=== PATIENT | female | born 1995 | race American Indian/Alaskan Native ===

== ENCOUNTER 2017-03-08 07:26 | Observation (INO) | payer MEDICAID, OTHER ==
[2013-11-27 01:38] VITALS: BMI 20.5
[2017-03-08] MEDS ORDERED: Sodium Chloride 0.9% 1,000 ML IV STA (08:49)
--- NOTE | 2017-03-08 09:17 | ED PDOC ---
Arrival/HPI - General Time Seen by Provider: 03/08/17 08:49 Historian: Patient - History of Present Illness Narrative History of Present Illness (Text): 03/08/17 09:14 Elvira Medrano is a 21 year old female, whose past medical history includes renal stones, presents to the Emergency department complaing of right side back pain since one day ago. Patient states it feels like the last time she got renal stones. Patient denies problems with urination, fever, chest pain, shortness of breath, headache, chills, cough, nausea, vomiting, diarrhea, changes in bowel habits, dysuria, or other complaints. PMD: None Time/Duration: 24 hours Symptom Onset: Sudden Symptom Course: Unchanged Modifying Factors (Text): None Context: Home Associated Symptoms (Text): None Past Medical History - Provider Review Nursing Documentation Reviewed: Yes - Infectious Disease Hx of Infectious Diseases: None - Tetanus Immunization Tetanus Immunization: Up to Date - Past Medical History Past Medical History: No Previous - Psychiatric Hx Depression: No Hx Emotional Abuse: No Hx Physical Abuse: No Hx Substance Use: No - Past Surgical History Past Surgical History: No Previous - Suicidal Assessment Feels Threatened In Home Enviroment: No Family/Social History - Physician Review Nursing Documentation Reviewed: Yes Family/Social History: Unknown Family HX Hx Alcohol Use: No Hx Substance Use: No Hx Substance Use Treatment: No Allergies/Home Meds Allergies/Adverse Reactions: Allergies No Known Allergies Allergy (Verified 03/08/17 09:55) Review of Systems - Physician Review All systems were reviewed & negative as marked: Yes - Review of Systems Constitutional: absent: Fevers Gastrointestinal: absent: Diarrhea, Vomiting Musculoskeletal: Back Pain (right side) Neurological: absent: Headache Physical Exam Vital Signs Reviewed: Yes Vital Signs Temp Pulse Resp BP Pulse Ox 03/08/17 12:00 98.1 F 88 18 120/67 100 03/08/17 09:50 97.5 F L 82 18 132/74 100 03/08/17 09:16 97.5 F L 82 18 132/74 100 Temperature: Afebrile Blood Pressure: Normal Pulse: Regular Respiratory Rate: Normal Appearance: Positive for: Well-Appearing, Non-Toxic, Comfortable Pain Distress: None Mental Status: Positive for: Alert and Oriented X 3 - Systems Exam Head: Present: Atraumatic, Normocephalic Pupils: Present: PERRL Extroacular Muscles: Present: EOMI Conjunctiva: Present: Normal Mouth: Present: Moist Mucous Membranes Neck: Present: Normal Range of Motion Respiratory/Chest: Present: Clear to Auscultation, Good Air Exchange. No: Respiratory Distress, Accessory Muscle Use Cardiovascular: Present: Regular Rate and Rhythm, Normal S1, S2. No: Murmurs Abdomen: Present: Normal Bowel Sounds. No: Tenderness, Distention, Peritoneal Signs Back: Present: CVA Tenderness (Right) Upper Extremity: Present: Normal Inspection. No: Cyanosis, Edema Lower Extremity: Present: Normal Inspection. No: Edema Neurological: Present: GCS=15, CN II-XII Intact, Speech Normal Skin: Present: Warm, Dry, Normal Color. No: Rashes Psychiatric: Present: Alert, Oriented x 3, Normal Insight, Normal Concentration Medical Decision Making ED Course and Treatment: 03/08/17 08:00 Impression: 21 year old female with right lower back pain r/o Renal Colic vs MSK Plan: -- CT Abdomen and Pelvis with PO and IV contrast -- Urinalysis -- Labs -- Toradol, Zofran, Sodium Chloride, Flomax, Tylenol -- Reassess and disposition - Lab Interpretations Lab Results: 03/08/17 08:30 03/08/17 08:30 Lab Results 03/08/17 08:30: Sodium 141, Potassium 3.2 L, Chloride 105, Carbon Dioxide 21, Anion Gap 18, BUN 7, Creatinine 0.7, Est GFR ( Amer) > 60, Est GFR (Non- Af Amer) > 60, Random Glucose 139 H, Calcium 9.6, Magnesium 1.8, Total Bilirubin 0.3, AST 31, ALT 23, Alkaline Phosphatase 57, Total Protein 8.4 H, Albumin 4.7, Globulin 3.7, Albumin/Globulin Ratio 1.3 03/08/17 08:30: WBC 7.1, RBC 3.84, Hgb 8.4 L, Hct 28.3 L, MCV 73.7 L, MCH 21.9 L , MCHC 29.7 L, RDW 17.0 H, Plt Count 312, MPV 9.8, Gran % 74.0 H, Lymph % (Auto ) 20.8 L, [place] % (Auto) 4.4, Eos % (Auto) 0.7 L, Baso % (Auto) 0.1, Gran # 5.23 , Lymph # 1.5, [place] # 0.3, Eos # 0.1, Baso # 0.01 I have reviewed the lab results: Yes - RAD Interpretation Radiology Orders: 03/08/17 08:50 ABD & PELVIS W/O PO OR IV CONT [CT] Stat - Medication Orders Current Medication Orders: Discontinued Medications Acetaminophen (Tylenol 325mg Tab) 975 mg PO STAT STA Stop: 03/08/17 09:16 Last Admin: 03/08/17 10:26 Dose: 975 mg Sodium Chloride (Sodium Chloride 0.9%) 1,000 mls @ 100 mls/hr IV .Q10H STA Stop: 03/08/17 18:48 Last Admin: 03/08/17 08:50 Dose: 100 mls/hr Lidocaine 78 mg/ Sodium (Chloride) 103.9 mls @ 623.4 mls/hr IV STAT STA Stop: 03/08/17 10:55 Last Admin: 03/08/17 11:22 Dose: 623.4 mls/hr Ketorolac Tromethamine (Toradol) 30 mg IVP STAT STA Stop: 03/08/17 08:50 Last Admin: 03/08/17 08:50 Dose: 30 mg Re-Assess: [facility] Pain Assessment Document 03/08/17 09:50 MR (Rec: 03/08/17 10:28 [facility]-[id number]) Pain Reassessment Is this a pain reassessment? Yes Sleep Is patient sleeping during reassessment? No Presence of Pain Presence of Pain Yes Pain Scale Used Pain Scale Used Numeric Location Left, Right or Bilateral Right Upper or Lower Lower Pain Location Body Site Back Description Description Constant Intensity of Pain at present 9 Pain Behavior Restlessness Facial Grimacing Aggravating Factors None Ketorolac Tromethamine (Toradol) Confirm Administered Dose 30 mg .ROUTE .STK- MED ONE Stop: 03/08/17 08:52 Last Admin: 03/08/17 09:16 Dose: Ondansetron HCl (Zofran Inj) 4 mg IVP STAT STA Stop: 03/08/17 08:50 Last Admin: 03/08/17 08:50 Dose: 4 mg Ondansetron HCl (Zofran Inj) Confirm Administered Dose 4 mg .ROUTE .STK-MED ONE Stop: 03/08/17 08:51 Last Admin: 03/08/17 09:16 Dose: Not Given Non-Admin Reason: Agitation Potassium Chloride (Potassium Chloride Oral Soln) 40 meq PO STAT STA Stop: 03/08/17 10:26 Last Admin: 03/08/17 11:22 Dose: 40 meq Tamsulosin HCl (Flomax) 0.4 mg PO STAT STA Stop: 03/08/17 09:16 Last Admin: 03/08/17 10:26 Dose: 0.4 mg ED OBSERVATION Discharge: Yes Date of observation admission: 03/08/17 Time of observation admission: 09:14 - Observation admission statement Patient is being placed in observation because:: Patient is being place on observation due to right flank pain and renal stone - Goals of Observation Goals of observation are:: Goal of observation is to relief and improve symptoms - Progress Note Progress Note: 03/08/17 09:14 Patient is being observed at bedside for response to treatment. 03/08/17 10:30 CT abdominal and pelvis without IV contrast: Creator : Venancio Balbuena MD FINDINGS: LOWER THORAX: Unremarkable. LIVER:Unremarkable. No gross lesion or ductal dilatation. GALLBLADDER AND BILE DUCTS:Unremarkable. PANCREAS: Unremarkable. No gross lesion or ductal dilatation. SPLEEN:Unremarkable. ADRENALS: Unremarkable. No mass. KIDNEYS AND URETERS: There is a 2 mm right distal ureteral stone at the level of the internal orifice of the UVJ. This is seen on image 127 series 2. There is mild hydronephrosis. Small stones are seen in both kidneys. VASCULATURE:Unremarkable. No aortic aneurysm. BOWEL: Unremarkable. No obstruction. No gross mural thickening. APPENDIX: Unremarkable. Normal appendix. PERITONEUM: Unremarkable. No free fluid. No free air. LYMPH NODES: Unremarkable. No enlarged lymph nodes. BLADDER: Unremarkable. REPRODUCTIVE:Unremarkable. BONES: No acute fracture. OTHER FINDINGS: None. IMPRESSION: 2 mm right distal ureteral stone at the level of the UVJ. Mild hydronephrosis 03/08/17 11:14 Patient did not improve with Toradol and Tylenol. Patient started with Lidocaine drip and the symptoms improved. 03/08/2017 11:55 Reevaluation: On reevaluation the patient feels better, is in no acute distress, is able to tolerate food and is no longer vomiting. I have discussed the results and plan with the patient, who expresses understanding. Patient given the opportunity to ask question, all questions were answered and there is agreement with the plan to discharge the patient. Patient is stable for discharge. Patient was instructed to follow up with physician/clinic in 1-2 days or return if symptoms persist/worsen or new concerning symptoms arise. - Scribe Statement The provider has reviewed the documentation as recorded by the Scribe 03/08/2017 Kalyani Minnie Provider Scribe Attestation: All medical record entries made by the Scribe were at my direction and personally dictated by me. I have reviewed the chart and agree that the record accurately reflects my personal performance of the history, physical exam, medical decision making, and the department course for this patient. I have also personally directed, reviewed, and agree with the discharge instructions and disposition. Disposition/Present on Arrival - Present on Arrival Any Indicators Present on Arrival: No History of DVT/PE: No History of Uncontrolled Diabetes: No Urinary Catheter: No History Surgical Site Infection Following: None - Disposition Have Diagnosis and Disposition been Completed?: Yes Diagnosis: Kidney stones Disposition: HOME/ ROUTINE Disposition Time: 12:16 Patient Plan: Discharge Condition: IMPROVED
[2017-03-08 09:18] VITALS: RESP 18; O2SAT 100
[2017-03-08 09:25] LABS: URINE BILIRUBIN NEGATIVE (NEGATIVE); URINE BLOOD MODERATE (NEGATIVE); URINE GLUCOSE (UA) NEGATIVE (NEGATIVE); URINE LEUKOCYTE ESTERASE NEGATIVE Leu/uL (NEGATIVE); URINE NITRATE NEGATIVE (NEGATIVE); URINE PROTEIN 30 mg/dL (<30 mg/dL); URINE UROBILINOGEN 0.2 E.U./dL (<1 E.U./dL)
[2017-03-08 09:27] LABS: BASO # 0.01 K/mm3 (0.0-2.0); BASO % 0.1 % (0.0-3.0); EOS # 0.1 (0.0-0.7); EOS % 0.7 % (1.5-5.0); GRAN # 5.23 (1.4-6.5); HEMOGLOBIN 8.4 gm/dL (12.0-16.0); LYMPH # 1.5 (1.2-3.4); LYMPH % 20.8 % (22.0-35.0); MEAN CELL VOLUME 73.7 fL (80.0-105.0); MEAN CORPUSCULAR HEMOGLOBIN 21.9 pg (25.0-35.0); MEAN CORPUSCULAR HGB CONC 29.7 g/dl (31.0-37.0); MEAN PLATELET VOLUME 9.8 fl (7.0-11.0); MONO # 0.3 (0.1-0.6); MONO % 4.4 % (1.0-6.0); PLATELET COUNT 312 10^3/uL (120.0-450.0); RBC 3.84 10^6/uL (3.5-6.1); WHITE BLOOD COUNT 7.1 10^3/ul (4.5-11.0)
[2017-03-08 09:29] LABS: URINE APPEARANCE SL CLOUDY (CLEAR); URINE COLOR YELLOW (YELLOW)
[2017-03-08 09:37] LABS: ALB/GLOB RATIO 1.3 (1.1-1.8); ALBUMIN 4.7 g/dL (3.0-4.8); ALT/SGPT 23 U/L (7-56); AST/SGOT 31 U/L (15-39); BLOOD UREA NITROGEN 7 mg/dL (7-21); CALCIUM 9.6 mg/dL (8.4-10.5); GFR AFRICAN-AMERICAN > 60; GFR NON-AFRICAN AMERICAN > 60; MAGNESIUM 1.8 mg/dL (1.7-2.2)
[2017-03-08 09:43] LABS: URINE CALCIUM OXALATE CRYSTALS MOD /hpf; URINE EPITHELIAL CELLS MANY /hpf (0-5)
[2017-03-08 09:44] LABS: URINE BACTERIA MANY (NEG)
[2017-03-08] MEDS ORDERED: Potassium Chloride 20 mEq ER Tab PO STA (09:48)
[2017-03-08] MEDS ORDERED: Potassium Chloride 40 mEq/30 ml LIQ UD PO STA (10:25)
--- NOTE | 2017-03-08 10:25 | CT ---
PROCEDURE: CT Abdomen and Pelvis without intravenous contrast HISTORY: right flank pain r/o kidney stone COMPARISON: None. TECHNIQUE: Without contrast.. Contrast Dose: Radiation dose: Total exam DLP = 212 mGy-cm. This CT exam was performed using one or more of the following dose reduction techniques: Automated exposure control, adjustment of the mA and/or kV according to patient size, and/or use of iterative reconstruction technique. FINDINGS: LOWER THORAX: Unremarkable. LIVER: Unremarkable. No gross lesion or ductal dilatation. GALLBLADDER AND BILE DUCTS: Unremarkable. PANCREAS: Unremarkable. No gross lesion or ductal dilatation. SPLEEN: Unremarkable. ADRENALS: Unremarkable. No mass. KIDNEYS AND URETERS: There is a 2 mm right distal ureteral stone at the level of the internal orifice of the UVJ. This is seen on image 127 series 2. There is mild hydronephrosis. Small stones are seen in both kidneys. VASCULATURE: Unremarkable. No aortic aneurysm. BOWEL: Unremarkable. No obstruction. No gross mural thickening. APPENDIX: Unremarkable. Normal appendix. PERITONEUM: Unremarkable. No free fluid. No free air. LYMPH NODES: Unremarkable. No enlarged lymph nodes. BLADDER: Unremarkable. REPRODUCTIVE: Unremarkable. BONES: No acute fracture. OTHER FINDINGS: None. IMPRESSION: 2 mm right distal ureteral stone at the level of the UVJ. Mild hydronephrosis
[2017-03-08] MEDS ORDERED: LIDOCAINE IV STA (10:54)
[2017-03-08] MEDS ORDERED: SODIUM CHLORIDE 0.9% IV STA (10:54)
[2017-03-08 12:01] VITALS: BP 120/67; PULSE 88; TEMP 98.1
== END 2017-03-08 11:53 | disposition home or self-care (01) ==
LOC: ED 08:47 → EROBSV 08:50
PROVIDERS: ADMIT Emergency Medicine; ATTEND Emergency Medicine
DX: N20.0 Calculus of kidney (principal)
CPT/HCPCS: 74176; 80053; 81001; 83735; 85025; 87086; 96374; 96375; 99283; G0378; J1885; J2001; J2405; J3480; J7040

== ENCOUNTER 2018-11-05 13:22 | Emergency (ER) | payer MEDICAID, OTHER ==
[2018-11-05 13:22] VITALS: BMI 20.5
[2018-11-05 13:32] VITALS: RESP 18; TEMP 98.2; O2SAT 100
--- NOTE | 2018-11-05 13:39 | ED PDOC ---
Arrival/HPI - General Chief Complaint: GI Problem Time Seen by Provider: 11/05/18 13:23 - History of Present Illness Narrative History of Present Illness (Text): 23 y/o female with PMH of constipation presents to the ED c/o loose stool, nausea, and malaise for the last 1 week. Has not taken any medications for symptoms. Denies fever, chills, abdominal pain, pelvic pain, vomiting, rectal pain, melena, back pain, SOB, cough, chest pain, sinus congestion, urinary symptoms, or any other associated symptoms. Past Medical History - Infectious Disease Hx of Infectious Diseases: None - Tetanus Immunization Tetanus Immunization: Up to Date - Past Medical History Past Medical History: No Previous - Renal Hx Kidney Stones: Yes - Psychiatric Hx Depression: No Hx Emotional Abuse: No Hx Physical Abuse: No Hx Substance Use: No - Past Surgical History Past Surgical History: No Previous - Surgical History Other/Comment: wisdom teeth - Anesthesia Hx Anesthesia: Yes Hx Anesthesia Reactions: No Hx Malignant Hyperthermia: No - Suicidal Assessment Feels Threatened In Home Enviroment: No Family/Social History Smoking Status: Never Smoked Hx Alcohol Use: Yes Frequency of alcohol use: Socially Hx Substance Use: No Hx Substance Use Treatment: No Allergies/Home Meds Allergies/Adverse Reactions: Allergies No Known Allergies Allergy (Verified 11/05/18 13:31) Review of Systems - Review of Systems Constitutional: Fatigue. absent: Fevers Eyes: Normal. absent: Vision Changes, Photophobia ENT: Normal. absent: Sore Throat, Sinus Congestion Respiratory: Normal. absent: SOB, Cough Cardiovascular: Normal. absent: Chest Pain, Palpitations Gastrointestinal: Nausea, Vomiting. absent: Abdominal Pain, Stool Changes, Appetite Changes Genitourinary Female: Normal Musculoskeletal: Normal Skin: Normal Neurological: Normal Endocrine: Normal Hemo/Lymphatic: Normal Psychiatric: Normal Physical Exam Vital Signs Temp Pulse Resp BP Pulse Ox 11/05/18 13:31 98.2 F 87 18 151/69 H 100 Disposition/Present on Arrival - Present on Arrival History of DVT/PE: No History of Uncontrolled Diabetes: No Urinary Catheter: No History of Decub. Ulcer: No History Surgical Site Infection Following: None - Disposition Diagnosis: Constipation, Viral syndrome Disposition: HOME/ ROUTINE Condition: GOOD Discharge Instructions (ExitCare): Constipation, Adult (DC), Viral Syndrome (DC) Additional Instructions: 1 capful of miralax in 8 ounces of fluid for 2 days until good BM Increase fluids, fiber Followup with GI doctor within 2 days Followup with primary within 2 days Return to ER with any new/worsening symptoms Prescriptions: Polyethylene Glycol 3350 [Miralax] 17 gm PO DAILY PRN #1 bottle PRN Reason: Constipation Referrals: [facility] [place] - Follow up with primary Ana Rosa Ortiz MD [Medical Doctor] - Follow up with primary Vishal George DO [Staff Provider] - Follow up with primary Forms: [facility] ([employer] [place]), WORK NOTE
[2018-11-05] MEDS ORDERED: Sodium Chloride 0.9% 1,000 ML IV STA (13:41)
[2018-11-05 14:54] LABS: BASO # 0.02 K/mm3 (0.0-2.0); BASO % 0.2 % (0.0-3.0); EOS % 0.1 % (1.5-5.0); HEMOGLOBIN 12.4 g/dL (12.0-16.0); LYMPH # 1.2 (1.2-3.4); LYMPH % 13.9 % (22.0-35.0); MEAN CORPUSCULAR HGB CONC 32.5 g/dl (31.0-37.0); MEAN PLATELET VOLUME 10.3 fl (7.0-11.0); MONO # 0.3 (0.1-0.6); MONO % 3.7 % (1.0-6.0); RBC 4.14 10^6/uL (3.5-6.1); RED CELL DISTRIBUTION WIDTH 14.4 % (11.5-14.5); WHITE BLOOD COUNT 8.5 10^3/uL (4.5-11.0)
[2018-11-05 14:58] LABS: PH,URINE 7.5 (4.7-8.0); URINE BILIRUBIN NEGATIVE (NEGATIVE); URINE BLOOD TRACE-INTACT (NEGATIVE); URINE GLUCOSE (UA) NEGATIVE (NEGATIVE); URINE LEUKOCYTE ESTERASE NEGATIVE Leu/uL (NEGATIVE); URINE PROTEIN NEGATIVE mg/dL (<30 mg/dL); URINE UROBILINOGEN 0.2 E.U./dL (<1 E.U./dL)
[2018-11-05 15:02] LABS: URINE APPEARANCE CLEAR (CLEAR); URINE COLOR YELLOW (YELLOW)
[2018-11-05 15:04] LABS: HCG,QUALITATIVE URINE NEGATIVE (NEGATIVE)
[2018-11-05 15:05] LABS: ALB/GLOB RATIO 1.2 (1.1-1.8); ALBUMIN 4.7 g/dL (3.0-4.8); ALT/SGPT 14 U/L (7-56); AST/SGOT 35 U/L (14-36); BLOOD UREA NITROGEN 7 mg/dL (7-21); CALCIUM 9.8 mg/dL (8.4-10.5); GFR NON-AFRICAN AMERICAN > 60; INR 1.18; LIPASE 41 U/L (23-300); PARTIAL THROMBOPLASTIN TIME 43.1 Seconds (26.9-38.3); PROTHROMBIN TIME 13.1 SECONDS (9.4-12.5)
[2018-11-05 15:12] LABS: URINE WBC 0 - 2 /hpf (0-6)
[2018-11-05 15:13] LABS: URINE BACTERIA FEW /hpf
--- NOTE | 2018-11-05 17:07 | RAD ---
Date of service: 11/05/2018 HISTORY: h/o constipation, nausea COMPARISON: None available. TECHNIQUE: 1 view obtained. FINDINGS: BOWEL: Dilated stomach with air-fluid level. No visible free air or evidence of mechanical bowel obstruction. BONES: Normal. OTHER FINDINGS: None. IMPRESSION: Distended stomach, otherwise unremarkable study.
[2018-11-05 17:39] VITALS: BP 99/55; PULSE 72
== END 2018-11-05 17:39 | disposition home or self-care (01) ==
LOC: ED 13:22
DX: B34.9 Viral infection, unspecified (principal); K59.00 Constipation, unspecified
CPT/HCPCS: 74019; 80053; 81001; 81025; 83690; 83735; 84703; 85025; 85610; 85730; 87086; 96361; 96374; 96375; 99284; J2405; J7030